=== PATIENT | male | born 2000 | race Caucasian/White ===

== ENCOUNTER 2020-12-13 14:07 | Emergency (ER) | payer BC ==
--- NOTE | 2020-12-13 14:53 | EDM.PDOC ---
ED HPI GENERAL MEDICAL PROBLEM - General Chief Complaint: Neuro Symptoms/Deficits Stated Complaint: RT SIDE OF FACE IS NUMB Time Seen by Provider: 12/13/20 14:43 - History of Present Illness INITIAL COMMENTS - FREE TEXT/NARRATIVE: 20-year-old male presents the emergency room with numbness on the right side of his face. Since Monday the patient has developed significant numbness on the right side of the face usually below the eye and he is having difficulty closing his eye and using the mouth on the right side. 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 And this preceded the weakness by nearly 2 weeks. Patient's past medical history is unremarkable. The patient has not had any facial rashes any [id number] sensation any significant pain with this. And no burning pain. - Related Data Allergies Allergy/AdvReac Type Severity Reaction Status Date / Time No Known Allergies Allergy Verified 12/13/20 14:20 Home Meds: Home Meds Sertraline [Zoloft] 100 mg PO DAILY 12/13/20 [History] predniSONE 20 mg PO WITHBREAKFAST #24 tab 12/13/20 [Rx] prednisoLONE acetate [Pred Forte 1% Ophth Susp] 1 drop EYEBOTH TID 12/13/20 [History] valACYclovir HCl [valACYclovir] 1,000 mg PO TID #21 tablet 12/13/20 [Rx] Past Medical History Psychiatric History: Reports: Anxiety - Past Surgical History HEENT Surgical History: Reports: Adenoidectomy, Tonsillectomy Social & Family History - Caffeine Use Caffeine Use: Reports: Coffee - Recreational Drug Use Recreational Drug Use: Yes Recreational Drug Type: Reports: Marijuana/Hashish ED ROS GENERAL - Review of Systems Review Of Systems: See Below Constitutional: Reports: No Symptoms HEENT: Reports: Other (And significant eye redness before the eyedrops this seems to be better) Respiratory: Reports: No Symptoms Cardiovascular: Reports: No Symptoms Endocrine: Reports: No Symptoms GI/Abdominal: Reports: No Symptoms : Reports: No Symptoms Musculoskeletal: Reports: Other (He has had some knee pain but has had knee pro blems in the past) Skin: Reports: No Symptoms ED EXAM, GENERAL - Physical Exam Exam: See Below Exam Limited By: No Limitations General Appearance: Alert, No Apparent Distress Eye Exam: Bilateral Eye: Conjunctival Injection (None is seen), Corneal Abrasion (None on the right no fluorescein uptake with cobalt blue light and slit-lamp examination) Ears: Normal External Exam, Normal Canal, Hearing Grossly Normal, Normal TMs Nose: Normal Inspection, Normal Mucosa, No Blood Throat/Mouth: Normal Inspection, Normal Lips, Normal Teeth, Normal Gums, Normal Oropharynx, Normal Voice, No Airway Compromise Head: Atraumatic, Other (Significant facial weakness on the right he cannot close his eye completely and has poor eye control. He has numbness clearly in the maxillary and mandibular branches of the trigeminal nerve) Neck: Normal Inspection, Supple, Non-Tender, Full Range of Motion Respiratory/Chest: No Respiratory Distress, Lungs Clear, Normal Breath Sounds Cardiovascular: Regular Rate, Rhythm, No Edema, No Murmur Course - Vital Signs Last Recorded V/S: Last Vital Signs Temp 36.1 C 12/13/20 15:36 Pulse 52 L 12/13/20 15:36 Resp 16 12/13/20 15:36 BP 123/79 12/13/20 15:36 Pulse Ox 100 12/13/20 15:36 - Orders/Labs/Meds Orders: Active Orders 24 hr Category Date Time Status Lanolin/Min Oil/Petrolatum [Artificial Tears Ointment] Med 12/13/20 15:24 Active 0.1 gm EYERT DAILY PRN Medication Orders Artificial Tears (Lanolin/Mineral Oil/Petrolatum Ophth Oint 3.5 Gm Tube) 0.1 gm EYERT DAILY PRN PRN Reason: Dry Eyes Last Admin: 12/13/20 15:38 Dose: 1 applicful Documented by: VIOLETA Meds: Medications Generic Name Dose Route Start Last Admin Trade Name Freq PRN Reason Stop Dose Admin Artificial Tears 0.1 gm 12/13/20 15:24 12/13/20 15:38 Lanolin/Mineral Oil/Petrolatum Ophth Oint 3.5 Gm Tube EYERT 1 applicful DAILY PRN Administration Dry Eyes Discontinued Medications Generic Name Dose Route Start Last Admin Trade Name Freq PRN Reason Stop Dose Admin Fluorescein Sodium 1 mg 12/13/20 15:01 12/13/20 15:05 Fluorescein 1 Mg Ophth Strip EYEBOTH 12/13/20 15:02 1 mg ONETIME ONE Administration Prednisone 80 mg 12/13/20 15:27 12/13/20 15:35 Prednisone 20 Mg Tab PO 12/13/20 15:28 80 mg ONETIME ONE Administration - Re-Assessments/Exams Free Text/Narrative Re-Assessment/Exam: 12/13/20 15:47 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 He will be started on prednisone at 80 mg a day Valtrex 1000 mg 3 times a day the patient's been using Naprosyn and advised him to stop using the Naprosyn and recommended he start Pepcid 20 mg twice daily while taking the prednisone and extended for 2 or 3 days afterwards. His I will be placed under protective cover using Lacri-Lube ointment Departure - Departure Time of Disposition: 15:29 Disposition: Home, Self-Care 01 Clinical Impression: Mendoza's palsy - Discharge Information Prescriptions: predniSONE 20 mg PO WITHBREAKFAST #24 tab valACYclovir HCl [valACYclovir] 1,000 mg PO TID #21 tablet Referrals: Nano Manning, [facility] [employer] PREVENTION MANAGER [Primary Care Provider] - Forms: ED Department Discharge Additional Instructions: Return to the emergency room with any questions problems or worsening symptoms. Follow-up with your regular healthcare provider on Monday or Monday for recheck Use the Lacri-Lube about a quarter of an inch inside the lower eyelid every 4 hours while awake. Use the eye protection cover at all times. Take the valacyclovir 1000 mg 3 times a day for 7 days. Take the prednisone 80 mg preferably first thing in the morning you will do this for 7 days your first dose is given here in the emergency room. Stop the naproxen. Do not take this with the prednisone. Take Pepcid, or famotidine 20 mg twice daily while taking the prednisone and for 2 to 3 days after you finish the prednisone. Follow-up with your eye doctor tomorrow for for recheck. Sepsis Event Note (ED) - Evaluation Sepsis Screening Result: No Definite Risk - Focused Exam Vital Signs: Vital Signs Temp Pulse Resp BP Pulse Ox 12/13/20 15:36 36.1 C 52 L 16 123/79 100 12/13/20 14:17 35.9 C L 58 L 16 145/80 H 98 - My Orders Last 24 Hours: My Active Orders 12/13/20 15:24 Lanolin/Min Oil/Petrolatum [Artificial Tears Ointment] 0.1 gm EYERT DAILY PRN - Assessment/Plan Last 24 Hours: My Active Orders 12/13/20 15:24 Lanolin/Min Oil/Petrolatum [Artificial Tears Ointment] 0.1 gm EYERT DAILY PRN
[2020-12-13] MEDS ORDERED: Fluorescein 1 MG Ophth Strip EYEBOTH ONE (15:01)
[2020-12-13] MEDS ORDERED: Lanolin/Mineral Oil/Petrolatum Ophth Oint 3.5 GM Tube EYERT PRN (15:24)
[2020-12-13] MEDS ORDERED: predniSONE 20 MG Tab PO ONE (15:27)
== END 2020-12-13 15:50 | disposition home or self-care (01) ==
LOC: JD.ED 14:07
DX: G51.0 Bell's palsy (principal); Z79.899 Other long term (current) drug therapy
CPT/HCPCS: 99283; J7512; A9270-GY